=== PATIENT | female | born 1990 | race Caucasian/White ===

== ENCOUNTER 2022-03-14 18:48 | Outpatient (CLI) | payer OTHER | END 2022-03-14 19:19 | disposition home or self-care (01) | LOC: NST 18:48 | PROVIDERS: ATTEND Obstetrics & Gynecology | DX: Z34.82 Encounter for supervision of other normal pregnancy, second trimester (principal) ==

== ENCOUNTER 2022-07-02 13:15 | Inpatient (IN) | payer OTHER ==
[~2022-07-02] VITALS: Ht 165.1 cm; Wt 72.6 kg
[2022-07-04] MEDS ORDERED: UNISOM25 MG PO (09:32)
[2022-07-04] MEDS ORDERED: ZOLOFT25 MG PO (09:32)
[2022-07-04] MEDS ORDERED: PRENATAL TABLE1 EAC4 PO (09:33)
== END 2022-07-06 13:17 | disposition home or self-care (01) | DRG 807 ==
LOC: OB/GYN 07-04 08:23 → LDR 07-04 08:23 → OB/GYN 07-04 14:38
PROVIDERS: ADMIT Obstetrics & Gynecology; ATTEND Obstetrics & Gynecology
PROC: 10D07Z6 Extraction of Products of Conception, Vacuum, Via Natural or Artificial Opening (ICD-10-PCS; principal; 2022-07-04)
PROC: 0KQM0ZZ Repair Perineum Muscle, Open Approach (ICD-10-PCS; 2022-07-04)
PROC: 0W8NXZZ Division of Female Perineum, External Approach (ICD-10-PCS; 2022-07-04)
PROC: 4A1HXCZ Monitoring of Products of Conception, Cardiac Rate, External Approach (ICD-10-PCS; 2022-07-04)
DX: O70.1 Second degree perineal laceration during delivery (principal); Z37.0 Single live birth; O99.824 Streptococcus B carrier state complicating childbirth; O66.5 Attempted application of vacuum extractor and forceps; Z3A.38 38 weeks gestation of pregnancy